=== PATIENT | male | born 1940 | race Caucasian/White ===

== ENCOUNTER → 2017-06-13 | Outpatient (CLI) | payer MEDICARE, OTHER ==
[~2017-06-13] MED LIST: ALLOPURINOL300 MG PO; ASPIRIN 32325 MG/TAB PO; COUMADIN2.5 MG PO; DITROPAN 5MG TAB5 MG PO; DOCUSATE100 MG PO; FLOMAX PO; GLIPIZIDE5 MG PO; GLUCOSAMINE & C1 CAP PO; IRON325 M1 PO; KLOR-CON 1010 MEQ PO; LISINOPRIL5 MG PO; LORTAB 10/500 51 TAB PO; MAGNESIUM250 M1 PO; MECLIZINE12.5 MG PO; METFORMIN HCL500 M1 PO; METFORMIN500 MG PO; MIRALAX17 GM/DOSE PO; MORPHINE 1515 MG/TAB PO; MULTIPLE VITAMI1 TAB PO; MVI; PRILOSEC 20MG20 MG PO; PROSCAR PO; SANCTURA XR60 MG PO; VALIUM5 MG PO; VITAMIN C BUFF500 MG PO; ZOCOR 20MG20 MG PO; ZOCOR40 MG PO; ZOFRAN8 MG PO
== END ==
LOC: MHCPAIN 09:58
DX: G89.29 Other chronic pain (principal); M47.27 Other spondylosis with radiculopathy, lumbosacral region; M53.3 Sacrococcygeal disorders, not elsewhere classified; M96.1 Postlaminectomy syndrome, not elsewhere classified; Z87.891 Personal history of nicotine dependence; Z79.82 Long term (current) use of aspirin
CPT/HCPCS: G0463